=== PATIENT | male | born 1945 | race Caucasian/White ===

== ENCOUNTER → 2020-01-03 12:59 | Outpatient (CLI) | payer MEDICARE, OTHER, SELFPAY ==
--- NOTE | ~2020-01-03 | CT_ITS ---
EXAMINATION: CT soft tiss neck chst ab w DATE: 01/03/2020 13:33 INDICATION: Chronic pharyngitis. Lump in throat. Asthma. TECHNIQUE: Computed tomography (CT) of the neck, chest, and abdomen was performed with 100 mL Omnipaq ue-350 intravenous contrast. Automated exposure control and iterative reconstruction technique were e mployed. The dose-length product was 1380.70 mGy-cm. COMPARISON: CT abdomen and pelvis 03/14/2014 FINDINGS: CT NECK: There are likely changes of ocular lens replacement surgeries. There is mild mucosal thicken ing in the paranasal sinuses. There are no pathologically enlarged lymph nodes. There are nodules in the thyroid measuring up to 5 mm, likely not clinically significant. There is plaque in the proximal internal carotid arteries with less than 50% stenosis relative to normal distal artery lumen diameter s. Partially visualized is a mass in the posterior scalp measuring at least 13 mm, likely benign. The mastoid air cells are normal. There is moderate cervical spondylosis. CT CHEST: There is mild scarring at the lung apices. There is mild atelectasis bilaterally. A calcifi ed left lung nodule is consistent with old granulomatous disease. No pleural effusion. The heart size is normal. There are coronary artery calcifications. There are calcifications of aortic valve. No pe ricardial effusion. There is mild thoracic spondylosis. There is mild chronic height loss of multiple vertebral bodies. CT ABDOMEN: The liver, gallbladder, spleen, pancreas, and adrenal glands are normal. There is cortica l thinning of the kidneys. There is a 7 mm cyst in left kidney. There are no dilated loops of bowel. There is calcified atherosclerosis of the aorta and many of the other arteries. There is mild lumbar spondylosis. IMPRESSION: 1. No etiology for the patient's symptoms. Reviewed, dictated and finalized at location A.
[2020-01-03 13:14] LABS: Estimated Glomerular Filt Rate 50
== END ==
PROVIDERS: Visit Provider Internal Medicine
DX: J31.2 Chronic pharyngitis (principal)
CPT/HCPCS: 70491; 71260; 74160; Q9967